=== PATIENT | female | born 1995 | race Caucasian/White ===

== ENCOUNTER 2017-12-04 11:44 | Inpatient (IN) | payer MEDICAID, OTHER ==
[2017-12-04 11:46] VITALS: BMI 33.0
[2017-12-04] MEDS ORDERED: Lactated Ringer's 1,000 ML IV ONE (11:46)
[2017-12-04] MEDS ORDERED: Oxytocin 30 units/LR 500ML 30 UNITS/500 ML BAG IV ONE (11:49)
[2017-12-04] MEDS: Lactated Ringer's 1,000 ML IV SCH ×2 (12:00→13:02)
[2017-12-04] MEDS ORDERED: Nalbuphine HCL 10 mg/ml Ampule IVP PRN (12:04)
[2017-12-04 12:22] LABS: BASO % 0.3 % (0.0-2.0); EOS # 0.1 K/uL (0.0-0.7); EOS % 0.6 % (0.0-4.0); HEMOGLOBIN 13.7 g/dL (12.0-16.0); LYMPH # 1.1 K/uL (1.0-4.3); LYMPH % 11.2 % (20.0-40.0); MEAN CELL VOLUME 87.9 fl (81.0-99.0); MEAN CORPUSCULAR HEMOGLOBIN 29.6 pg (27.0-31.0); MEAN CORPUSCULAR HGB CONC 33.7 g/dL (33.0-37.0); MONO # 0.7 K/uL (0.0-0.8); MONO % 7.3 % (0.0-10.0); NEUT # 8.2 K/uL (1.8-7.0); NEUT % 80.6 % (50.0-75.0); NRBC % 0.1 % (0.0-0.0); RBC 4.64 Mil/uL (3.80-5.20); RED CELL DISTRIBUTION WIDTH 14.5 % (11.5-14.5); WHITE BLOOD COUNT 10.1 K/uL (4.8-10.8)
--- NOTE | 2017-12-04 12:44 | OBADHP ---
Datetime: 12/04/2017 12:34 Admit Comment, IP Provider: Patient is a @ 40 wks with a history of GDMA diet controlled and GBS+ presents with painful contractions and bloodtinged fluid. +FM.Pos chlamydia at initial visit wi th CRYSTAL and restest neg , no medical problems, no surgeries, no allergies VE+6/80/-1, bulging bag, bloodtinged fluid [id number] mod mariel, +accels, no decels TOCO = contraciting q 2 mins A/P 1. Admit pt to labor and delivery, start IVF, CBC/type and screen 2. GBS Positive, will start PCN 3. Pt in pain would like pain medication. Will try Nubain if platelets aren't available, then will offer pt epidural 4. CEFM and TOCO Pelvic Type - PN: Adequate Extremities - PN: Normal Abdomen - PN: Normal Back - PN: Normal Breast - PN: Normal Lungs - PN: Normal Heart - PN: Normal Thyroid - PN: Normal Neurologic - PN: Normal HEENT - PN: Normal General - PN: Normal Presentation-Admit: Vertex FHR - Baseline A Provider: 140 Membranes, Provider: Intact Contraction Comments Provider: q 2 mins Vital Signs Provider: Reviewed; Within Normal Limits IP Chief Complaint: Uterine contractions NICHD Variability Prov Fetus A: Moderate 6-25bpm NICHD Accel Fetus A IP Provider: [id number] NICHD Decel Fetus A IP Provider: None Dilatation, Provider: 6 Effacement, Provider: 80 Station, Provider: -1 Genitourinary Exam: Normal DTRs - PN: Normal EGA AdmitDate IP: 40.0 IP Adm Impression: Term, intrauterine IP Admit Plan: Admit to unit; Initiate labor protocol
[2017-12-04] MEDS ORDERED: Fentanyl/Bupivacaine HCl 250 ML EPI ONE (12:53)
--- NOTE | 2017-12-04 17:59 | OBPN ---
Datetime: 12/04/2017 16:10 IP Progress Impression: Normal progression of labor IP Informed Consent Obtain: Vaginal Delivery IP Procedures: Sterile Vag Exam IP Progress Plan: Continue present management Membranes, Provider: Bulging Amniotic Fluid Color, Provider: Meconium, Heavy Contraction Comments Provider: q 2 mins FHR - Baseline A Provider: 130 IP Progress Note Comment: Patient comfortable s/p epidural VE= 10/100/0 BCI=137 mod mariel, +accels, no decels TOCO = ctxing q 2 mins A/P 1. Patient progressing well in labor, now ruptered and fully dilated. WIll wait for patient to fee l more consistant pressure and for more progress before pushing 2. CEFM and TOCO 3. Re-evaluate as needed Vital Signs Provider: Reviewed; Within Normal Limits NICHD Accel Fetus A IP Provider: [id number] NICHD Variability Prov Fetus A: Moderate 6-25bpm Dilatation, Provider: 10 Effacement, Provider: 100 Station, Provider: 0 NICHD Decel Fetus A IP Provider: None; Variable Datetime: 12/04/2017 12:34 Presentation-Admit: Vertex
[2017-12-04] MEDS ORDERED: Oxycodone/Acetaminophen 5/325 mg Tab PO PRN (19:00)
[2017-12-04] MEDS ORDERED: Benzocaine/Menthol SPRAY TOP PRN (19:00)
[2017-12-04] MEDS ORDERED: ceFAZolin IV 2 gm in Dextrose 2 GM/50 ML BAG IVPB ONE (19:05)
--- NOTE | 2017-12-04 19:09 | OBDS ---
DELIVERY PERSONNEL Delivery Doctor: Niki Frances MD Inspection Supervisor: DamonYi damon RN MATERNAL INFORMATION Delivery Anesthesia: Epidural Medications in Delivery: 30 units Pitocin in 500 ml LR Provider Comments: of live male over intact perineum in NOEL presentation, followed by ran bowling and rest of infant 7lbs 12 oz, 9/9, thick meconium, cord clamped and cut and handed off to [facility] pediatric team, cord blood obtained, placenta delivered manually, Ancef to be given, fundus fi rm, quantified blood loss = 200mL, labial laceration repaired with 3-0 vicryl rapide, patient otherwi se tolerated procedure well LABOR SUMMARY EDC: 12/04/2017 00:00 No. Babies in Womb: 1 Attempted: No Labor Anesthesia: Epidural LABOR INFORMATION Reason for Induction: Not Applicable Onset of Labor: 12/04/2017 10:00 Complete Dilatation: 12/04/2017 16:10 Group B Beta Strep: Positive Antibiotics # of Doses: 1 Antibiotics Time of Last Dose: 1230 Steroids Given: None Reason Steroids Not Administered: Not Applicable MEMBRANES Membranes Rupture Method: Artificial Rupture of Membranes: 12/04/2017 16:10 Amniotic Fluid Color: Heavy Meconium Amniotic Fluid Amount: Moderate Amniotic Fluid Odor: Normal STAGES OF LABOR Stage 1 hrs: 6 Stage 1 min: 10 INFANT INFORMATION BABY A Gestational Age at Delivery: 40.0 Gestational Status: Term Sex: Male CORD INFORMATION BABY A Suction: Mouth; Nose
--- NOTE | 2017-12-05 07:28 | OBPPN ---
Datetime: 12/05/2017 06:04 PP Pain Prov: Within normal limits PP Nausea Prov: Denies PP Flatus Prov: Yes PP BM Prov: No PP Impression Prov: Normal progression PP Plan Prov: Continue present management PP Progress Note Prov: Patient seen and examined this morning at bedside. Denies abdominal pain. Voi ding w/o any difficulties, tolerating PO intake and reports good progression. No BM but passing gas per rectum. Lochia like menses. Denies chest pain, dyspnea, nausea, vomiting, and calf p ain. VSS, afebrile Gen: NAD Resp: cta b/l CV: normal S1S2, RRR Abd: soft, +BS, nontender, firm fundus below umbilicus. Ext: no edema, no calf tenderness Neuro/psych: AAOx3, no gross deficits, preserved mood and affect A/P: 22 yo , s/p NVD doing well on PPD 1. -Normal progression -c/w pain management -Encourage ambulation and -Pp H/H pending -Anticipated discharge 12/06/17 -Patient is aware and all the questions were answered [place] PGY-1 OB Hospitalist Addendum: Pt seen and examined by me. PPD 1 s/p , doing well, breast and bottle feeding. Continue current care. (ES) IP PP Procedures: None Vital Signs Provider PP: Reviewed; Within Normal Limits
[2017-12-05 07:48] LABS: BASO % 0.3 % (0.0-2.0); EOS # 0.1 K/uL (0.0-0.7); EOS % 0.6 % (0.0-4.0); HEMOGLOBIN 11.9 g/dL (12.0-16.0); LYMPH # 1.8 K/uL (1.0-4.3); MEAN CELL VOLUME 87.1 fl (81.0-99.0); MEAN CORPUSCULAR HEMOGLOBIN 29.2 pg (27.0-31.0); MEAN CORPUSCULAR HGB CONC 33.5 g/dL (33.0-37.0); MEAN PLATELET VOLUME 10.5 fl (7.2-11.7); MONO # 1.1 K/uL (0.0-0.8); MONO % 9.4 % (0.0-10.0); NEUT # 8.8 K/uL (1.8-7.0); NEUT % 74.7 % (50.0-75.0); RBC 4.08 Mil/uL (3.80-5.20); RED CELL DISTRIBUTION WIDTH 14.3 % (11.5-14.5); WHITE BLOOD COUNT 11.8 K/uL (4.8-10.8)
[2017-12-05] MEDS: Multivitamin With Minerals Tab PO SCH (08:17)
[2017-12-06] MEDS: Multivitamin With Minerals Tab PO SCH (08:21)
--- NOTE | 2017-12-06 10:52 | OBDCSUM ---
Datetime: 12/06/2017 08:18 Discharged to, Provider: Home Follow up at, Provider: your doctor Disch Instr Activity: May be up to bathroom; May be up for meals; May Shower Disch Instr Diet: Regular Discharge Instructions, Provider: Routine instructions given Discharge Diagnosis, Provider: Term Delivered Discharge Time: 12/06/2017 10:50 Follow up in weeks, Provider: in 4-6 weeks Disch Referrals: None Contraception discussed, Prov: Yes Disch Activity Restrictions: No exercising; No lifting; No sexual activity; Nothing in vagina - Inte rcourse, tampons, douche Discharge Comment, Provider: Discharge to home today Take vitamin daily take ibuprofen 600 mg 1 tab every 6 hours as needed for pain Encourage . Ambulation with caution,nothing per vaginal, no heavy lifting, if excessive bleeding or fever w/o relief from pain medications go to ED. Follow up at your clinic in 6 weeks for visit. Contraception after Delivery: Control Pill/Patch
--- NOTE | 2017-12-06 10:52 | OBPPN ---
Datetime: 12/06/2017 08:17 PP Pain Prov: Within normal limits PP Nausea Prov: Denies PP Flatus Prov: Yes PP BM Prov: Yes PP Heart Prov: Normal PP Lungs Prov: Normal PP Abdomen/Uterus Prov: Normal PP Lochia Prov: Normal PP CVA Tenderness Prov: Normal PP Extremities Prov: Normal PP Progress Prov: Normal PP Impression Prov: Normal progression PP Plan Prov: Discharge PP Progress Note Prov: 22 y/o female now on PPD# 2 seen and examined at bedside this morning. No overnight events . Reports pain is controlled with pain medications. Pt reports passing gas per rectum and + BM yester day. Voiding freely w/o blood noted. Ambulating well w/o dizziness. Lochia is similar to menses volum e. Pt is the baby w/o difficulty. Denies nausea, vomiting, fever, chills, chest pain or calf pain. Physical Exam: General: A_O, resting comfortably in bed, NAD HEENT: oral mucosa moist. Lungs: CTA B/L, no wheezing, rhonchi or rales CVS: RRR, S1, S2 ABD: ND, +BS, firm fundus @ umbilical level. Soft, appropriate TTP. EXT: no edema, negative Shamir's sign, Neuro/psych: AAOX3. Assessment: 22 y/o female now doing well on PPD 2 Plan: Discharge to home today PNV 1 PO qdaily Ibuprofen 600 mg 1 tab po prn q6 if moderate/severe pain Encourage . Ambulation with caution,nothing per vaginal, no heavy lifting, if excessive bleeding or fever w/o relief from pain medication go to ED. Follow up with your doctor in 6 weeks for visit. Josette, PGY-[address] Frances: I have evaluated the patient independently and I agree with the above Vital Signs Provider PP: Reviewed; Within Normal Limits
[2017-12-06 18:52] VITALS: BP 117/67; PULSE 80; RESP 20; TEMP 98.4; O2SAT 100
== END 2017-12-06 13:30 | disposition home or self-care (01) | DRG 373 ==
LOC: H.L&D 11:46 → H.OB/GYN 21:30
PROVIDERS: ADMIT Obstetrics & Gynecology; ATTEND Obstetrics & Gynecology
PROC: 10E0XZZ Delivery of Products of Conception, External Approach (ICD-10-PCS; principal; 2017-12-04)
PROC: 4A1HXCZ Monitoring of Products of Conception, Cardiac Rate, External Approach (ICD-10-PCS; 2017-12-04)
PROC: 0HQ9XZZ Repair Perineum Skin, External Approach (ICD-10-PCS; 2017-12-04)
DX: O77.0 Labor and delivery complicated by meconium in amniotic fluid (principal); O99.824 Streptococcus B carrier state complicating childbirth; Z3A.40 40 weeks gestation of pregnancy; Z37.0 Single live birth; O70.0 First degree perineal laceration during delivery